=== PATIENT | female | born 1945 | race Caucasian/White ===

== ENCOUNTER → 2017-01-17 | Outpatient (CLI) | payer BC ==
[2017-01-17 14:51] LABS: HEMATOCRIT 30.8 % (36.0-47.0); HEMOGLOBIN 10.3 g/dL (12.0-15.5); HGB HCT DIFFERENCE 0.1; MEAN CORPUSCULAR HEMOGLOBIN 31.2 pg (27.0-33.4); MEAN CORPUSCULAR HGB CONC 33.5 g/dL (32.0-36.0); MEAN CORPUSCULAR VOLUME 93 fl (80-97); RED CELL DISTRIBUTION WIDTH 15.2 % (11.5-14.0); WHITE BLOOD COUNT 8.1 10^3/uL (4.0-10.5)
[2017-01-17 15:00] LABS: APPEARANCE,URINE CLEAR; BILIRUBIN,URINE NEGATIVE (NEGATIVE); GLUCOSE, URINE NEGATIVE (NEGATIVE); KETONES,URINE NEGATIVE (NEGATIVE); LEUKOCYTE ESTERASE,URINE NEGATIVE (NEGATIVE); NITRITE,URINE NEGATIVE (NEGATIVE); PROTEIN,URINE 100 mg/dL (NEGATIVE); URINE SPECIFIC GRAVITY 1.008; UROBILINOGEN,URINE NEGATIVE mg/dL (<2.0)
[2017-01-17 15:12] LABS: ANION GAP 14 (5-19); BLOOD UREA NITROGEN 46 mg/dL (7-20); CALCIUM 9.4 mg/dL (8.4-10.2); CARBON DIOXIDE 18 mmol/L (22-30); CHLORIDE 112 mmol/L (98-107); CREATININE RESULT 3.18 mg/dL (0.52-1.25); GLUCOSE 106 mg/dL (75-110); PHOSPHORUS 6.8 mg/dL (2.5-4.5); SODIUM 143.8 mmol/L (137-145)
[2017-01-17 15:15] LABS: POTASSIUM 4.9 mmol/L (3.6-5.0)
== END ==
LOC: OD 13:43
PROVIDERS: ATTEND Internal Medicine Nephrology
DX: N18.4 Chronic kidney disease, stage 4 (severe) (principal); E87.5 Hyperkalemia; D64.9 Anemia, unspecified; I12.9 Hypertensive chronic kidney disease with stage 1 through stage 4 chronic kidney disease, or unspecified chronic kidney disease
CPT/HCPCS: 36415; 80048; 81001; 83970; 84100; 85027

== ENCOUNTER → 2017-02-14 | Outpatient (CLI) | payer BC ==
[2017-02-14 14:26] LABS: HEMATOCRIT 29.7 % (36.0-47.0); HEMOGLOBIN 9.7 g/dL (12.0-15.5); HGB HCT DIFFERENCE -0.6; MEAN CORPUSCULAR HEMOGLOBIN 30.7 pg (27.0-33.4); MEAN CORPUSCULAR HGB CONC 32.6 g/dL (32.0-36.0); MEAN CORPUSCULAR VOLUME 94 fl (80-97); RED BLOOD COUNT 3.16 10^6/uL (3.72-5.28); WHITE BLOOD COUNT 8.8 10^3/uL (4.0-10.5)
[2017-02-14 14:37] LABS: APPEARANCE,URINE CLEAR; BILIRUBIN,URINE NEGATIVE (NEGATIVE); GLUCOSE, URINE NEGATIVE (NEGATIVE); KETONES,URINE NEGATIVE (NEGATIVE); LEUKOCYTE ESTERASE,URINE NEGATIVE (NEGATIVE); NITRITE,URINE NEGATIVE (NEGATIVE); PROTEIN,URINE 100 mg/dL (NEGATIVE); URINE SPECIFIC GRAVITY 1.008; UROBILINOGEN,URINE NEGATIVE mg/dL (<2.0)
[2017-02-14 14:50] LABS: URINE PROTEIN 148.2 mg/dL (<12)
[2017-02-14 14:58] LABS: ANION GAP 13 (5-19); BLOOD UREA NITROGEN 38 mg/dL (7-20); CALCIUM 9.6 mg/dL (8.4-10.2); CARBON DIOXIDE 19 mmol/L (22-30); CHLORIDE 108 mmol/L (98-107); CREATININE RESULT 3.24 mg/dL (0.52-1.25); GLUCOSE 101 mg/dL (75-110); POTASSIUM 5.1 mmol/L (3.6-5.0); SODIUM 139.9 mmol/L (137-145)
== END ==
LOC: OD 13:36
PROVIDERS: ATTEND Physician Assistant Medical
DX: I12.9 Hypertensive chronic kidney disease with stage 1 through stage 4 chronic kidney disease, or unspecified chronic kidney disease (principal); N18.5 Chronic kidney disease, stage 5; E87.2 Acidosis
CPT/HCPCS: 36415; 80048; 81001; 82570; 83970; 84100; 84156; 85027

== ENCOUNTER → 2017-03-13 | Outpatient (CLI) | payer BC ==
[2017-03-13 11:42] LABS: HEMOGLOBIN 10.1 g/dL (12.0-15.5); HGB HCT DIFFERENCE -0.7; MEAN CORPUSCULAR HEMOGLOBIN 31.5 pg (27.0-33.4); MEAN CORPUSCULAR HGB CONC 32.6 g/dL (32.0-36.0); MEAN CORPUSCULAR VOLUME 96 fl (80-97); RED BLOOD COUNT 3.22 10^6/uL (3.72-5.28); RED CELL DISTRIBUTION WIDTH 14.3 % (11.5-14.0); WHITE BLOOD COUNT 8.2 10^3/uL (4.0-10.5)
[2017-03-13 12:10] LABS: ANION GAP 14 (5-19); BLOOD UREA NITROGEN 50 mg/dL (7-20); CALCIUM 9.3 mg/dL (8.4-10.2); CARBON DIOXIDE 18 mmol/L (22-30); CHLORIDE 109 mmol/L (98-107); CREATININE RESULT 3.64 mg/dL (0.52-1.25); GLUCOSE 131 mg/dL (75-110); MAGNESIUM 1.8 mg/dL (1.6-2.3); POTASSIUM 4.8 mmol/L (3.6-5.0); SODIUM 140.8 mmol/L (137-145)
[2017-03-16 12:05] LABS: APPEARANCE,URINE CLEAR; BILIRUBIN,URINE NEGATIVE (NEGATIVE); GLUCOSE, URINE NEGATIVE (NEGATIVE); KETONES,URINE NEGATIVE (NEGATIVE); LEUKOCYTE ESTERASE,URINE NEGATIVE (NEGATIVE); NITRITE,URINE NEGATIVE (NEGATIVE); PROTEIN,URINE >=500 mg/dL (NEGATIVE); URINE SPECIFIC GRAVITY 1.008; UROBILINOGEN,URINE NEGATIVE mg/dL (<2.0)
[2017-03-16 12:33] LABS: URINE CREATININE 54.4 mg/dL (15-278)
== END ==
LOC: OD 11:01
PROVIDERS: ATTEND Physician Assistant Medical
DX: I12.9 Hypertensive chronic kidney disease with stage 1 through stage 4 chronic kidney disease, or unspecified chronic kidney disease (principal); N18.5 Chronic kidney disease, stage 5; D64.9 Anemia, unspecified; R80.9 Proteinuria, unspecified; N25.0 Renal osteodystrophy
CPT/HCPCS: 36415; 80048; 81001; 82570; 82728; 83540; 83550; 83735; 84156; 85027; 86038

== ENCOUNTER → 2017-04-12 | Outpatient (CLI) | payer BC ==
[2017-04-12 09:28] LABS: ANION GAP 11 (5-19); BLOOD UREA NITROGEN 36 mg/dL (7-20); CALCIUM 9.5 mg/dL (8.4-10.2); CARBON DIOXIDE 19 mmol/L (22-30); CHLORIDE 114 mmol/L (98-107); CREATININE RESULT 3.46 mg/dL (0.52-1.25); Direct HDL 32 mg/dL (>40); GLUCOSE 98 mg/dL (75-110); POTASSIUM 5.1 mmol/L (3.6-5.0); SODIUM 143.6 mmol/L (137-145); TRIGLYCERIDES 152 mg/dL (<150)
[2017-04-12 09:40] LABS: DIRECT LDL 33 mg/dL (<100)
[2017-04-12 09:43] LABS: VLDL CHOLESTEROL 30.4 mg/dL (10-31)
== END ==
LOC: OD 08:08
PROVIDERS: ATTEND Family Medicine
DX: E78.2 Mixed hyperlipidemia (principal); I10 Essential (primary) hypertension; Z79.899 Other long term (current) drug therapy
CPT/HCPCS: 36415; 80048; 80061; 83036; 84443

== ENCOUNTER → 2017-04-25 | Outpatient (CLI) | payer BC ==
[2017-04-25 12:27] LABS: APPEARANCE,URINE CLEAR; BILIRUBIN,URINE NEGATIVE (NEGATIVE); GLUCOSE, URINE NEGATIVE (NEGATIVE); KETONES,URINE NEGATIVE (NEGATIVE); LEUKOCYTE ESTERASE,URINE NEGATIVE (NEGATIVE); NITRITE,URINE NEGATIVE (NEGATIVE); PROTEIN,URINE 100 mg/dL (NEGATIVE); URINE SPECIFIC GRAVITY 1.006; UROBILINOGEN,URINE NEGATIVE mg/dL (<2.0)
[2017-04-25 12:48] LABS: URINE CREATININE 29.6 mg/dL (15-278); URINE PROTEIN 137.4 mg/dL (<12)
[2017-04-25 13:17] LABS: ABSOLUTE BASOPHILS # (AUTO) 0.1 10^3/uL (0.0-0.2); ABSOLUTE EOSINOPHILS # (AUTO) 0.2 10^3/uL (0.0-0.6); ABSOLUTE LYMPHOCYTES (AUTO) 1.9 10^3/uL (0.5-4.7); ABSOLUTE MONOCYTES (AUTO) 0.7 10^3/uL (0.1-1.4); ABSOLUTE NEUT (AUTO) 5.7 10^3/uL (1.7-8.2); EOSINOPHILS % (AUTO) 2.7 % (0-6); HEMATOCRIT 28.8 % (36.0-47.0); HEMOGLOBIN 9.6 g/dL (12.0-15.5); LYMPHOCYTES % (AUTO) 22.3 % (13-45); MEAN CORPUSCULAR HEMOGLOBIN 32.3 pg (27.0-33.4); MEAN CORPUSCULAR HGB CONC 33.5 g/dL (32.0-36.0); MEAN CORPUSCULAR VOLUME 96 fl (80-97); MONOCYTES % (AUTO) 7.8 % (3-13); RED BLOOD COUNT 2.98 10^6/uL (3.72-5.28); RED CELL DISTRIBUTION WIDTH 14.3 % (11.5-14.0); SEGMENTED NEUTROPHILS % (AUTO) 66.2 % (42-78); WHITE BLOOD COUNT 8.5 10^3/uL (4.0-10.5)
[2017-04-25 13:46] LABS: ANION GAP 14 (5-19); BLOOD UREA NITROGEN 39 mg/dL (7-20); CALCIUM 9.3 mg/dL (8.4-10.2); CARBON DIOXIDE 19 mmol/L (22-30); CHLORIDE 111 mmol/L (98-107); CREATININE RESULT 3.54 mg/dL (0.52-1.25); GLUCOSE 96 mg/dL (75-110); PHOSPHORUS 5.4 mg/dL (2.5-4.5); POTASSIUM 4.8 mmol/L (3.6-5.0); SODIUM 144.1 mmol/L (137-145)
== END ==
LOC: OD 11:48
PROVIDERS: ATTEND Physician Assistant Medical
DX: I12.0 Hypertensive chronic kidney disease with stage 5 chronic kidney disease or end stage renal disease (principal); N18.5 Chronic kidney disease, stage 5; E87.5 Hyperkalemia; R80.9 Proteinuria, unspecified
CPT/HCPCS: 36415; 80048; 81001; 82570; 83970; 84100; 84156; 85025

== ENCOUNTER → 2017-08-01 | Outpatient (CLI) | payer BC ==
[2017-08-01 14:44] LABS: HEMATOCRIT 30.7 % (36.0-47.0); HEMOGLOBIN 10.3 g/dL (12.0-15.5); HGB HCT DIFFERENCE 0.2; MEAN CORPUSCULAR HGB CONC 33.6 g/dL (32.0-36.0); MEAN CORPUSCULAR VOLUME 92 fl (80-97); RED BLOOD COUNT 3.33 10^6/uL (3.72-5.28); RED CELL DISTRIBUTION WIDTH 14.8 % (11.5-14.0); WHITE BLOOD COUNT 9.1 10^3/uL (4.0-10.5)
[2017-08-01 14:50] LABS: APPEARANCE,URINE SLIGHTLY-CLOUDY; BILIRUBIN,URINE NEGATIVE (NEGATIVE); GLUCOSE, URINE 50 mg/dL (NEGATIVE); KETONES,URINE NEGATIVE (NEGATIVE); LEUKOCYTE ESTERASE,URINE NEGATIVE (NEGATIVE); NITRITE,URINE NEGATIVE (NEGATIVE); PROTEIN,URINE >=500 mg/dL (NEGATIVE); UROBILINOGEN,URINE NEGATIVE mg/dL (<2.0)
[2017-08-01 15:08] LABS: ANION GAP 13 (5-19); BLOOD UREA NITROGEN 38 mg/dL (7-20); CALCIUM 9.4 mg/dL (8.4-10.2); CARBON DIOXIDE 22 mmol/L (22-30); CHLORIDE 111 mmol/L (98-107); CREATININE RESULT 4.49 mg/dL (0.52-1.25); GLUCOSE 99 mg/dL (75-110); POTASSIUM 4.7 mmol/L (3.6-5.0); SODIUM 145.7 mmol/L (137-145)
[2017-08-01 15:13] LABS: URINE CREATININE 81.6 mg/dL (15-278)
[2017-08-01 15:26] LABS: URINE PROTEIN 370.3 mg/dL (<12)
== END ==
LOC: OD 14:07
PROVIDERS: ATTEND Physician Assistant Medical
DX: N18.5 Chronic kidney disease, stage 5 (principal); D63.1 Anemia in chronic kidney disease; R80.9 Proteinuria, unspecified; E87.5 Hyperkalemia
CPT/HCPCS: 36415; 80048; 81001; 82570; 82728; 83540; 83550; 84156; 85027

== ENCOUNTER → 2017-09-14 | Outpatient (CLI) | payer BC ==
[2017-09-14 12:45] LABS: HEMOGLOBIN 10.2 g/dL (12.0-15.5); MEAN CORPUSCULAR HGB CONC 33.1 g/dL (32.0-36.0); MEAN CORPUSCULAR VOLUME 94 fl (80-97); PLATELET COUNT 159 10^3/uL (150-450); RED BLOOD COUNT 3.31 10^6/uL (3.72-5.28); RED CELL DISTRIBUTION WIDTH 15.3 % (11.5-14.0); WHITE BLOOD COUNT 9.9 10^3/uL (4.0-10.5)
[2017-09-14 12:49] LABS: APPEARANCE,URINE CLEAR; BILIRUBIN,URINE NEGATIVE (NEGATIVE); COLOR,URINE STRAW; GLUCOSE, URINE 50 mg/dL (NEGATIVE); KETONES,URINE NEGATIVE (NEGATIVE); LEUKOCYTE ESTERASE,URINE NEGATIVE (NEGATIVE); NITRITE,URINE NEGATIVE (NEGATIVE); PROTEIN,URINE 100 mg/dL (NEGATIVE); URINE SPECIFIC GRAVITY 1.008; UROBILINOGEN,URINE NEGATIVE mg/dL (<2.0)
[2017-09-14 13:10] LABS: UR PRO/CREAT RATIO RESULT 3.1 mg/mg (0.0-0.2); URINE CREATININE 36.7 mg/dL (15-278); URINE PROTEIN 113.8 mg/dL (<12)
[2017-09-14 13:11] LABS: ANION GAP 12 (5-19); BLOOD UREA NITROGEN 46 mg/dL (7-20); CALCIUM 9.8 mg/dL (8.4-10.2); CARBON DIOXIDE 21 mmol/L (22-30); CHLORIDE 111 mmol/L (98-107); GLUCOSE 97 mg/dL (75-110); POTASSIUM 5.4 mmol/L (3.6-5.0); SODIUM 143.9 mmol/L (137-145)
== END ==
LOC: OD 12:00
PROVIDERS: ATTEND Physician Assistant Medical
DX: I12.9 Hypertensive chronic kidney disease with stage 1 through stage 4 chronic kidney disease, or unspecified chronic kidney disease (principal); N18.5 Chronic kidney disease, stage 5; D64.9 Anemia, unspecified; E87.5 Hyperkalemia
CPT/HCPCS: 36415; 80048; 81001; 82570; 84156; 85027

== ENCOUNTER → 2017-12-07 | Outpatient (CLI) | payer BC ==
[2017-12-07 15:21] LABS: HEMATOCRIT 28.8 % (36.0-47.0); HEMOGLOBIN 9.8 g/dL (12.0-15.5); MEAN CORPUSCULAR HGB CONC 33.9 g/dL (32.0-36.0); MEAN CORPUSCULAR VOLUME 94 fl (80-97); PLATELET COUNT 137 10^3/uL (150-450); RED BLOOD COUNT 3.06 10^6/uL (3.72-5.28); RED CELL DISTRIBUTION WIDTH 14.4 % (11.5-14.0); WHITE BLOOD COUNT 9.5 10^3/uL (4.0-10.5)
[2017-12-07 15:31] LABS: ANION GAP 11 (5-19); BLOOD UREA NITROGEN 48 mg/dL (7-20); CALCIUM 9.1 mg/dL (8.4-10.2); CARBON DIOXIDE 20 mmol/L (22-30); CHLORIDE 112 mmol/L (98-107); GLUCOSE 105 mg/dL (75-110); PHOSPHORUS 5.9 mg/dL (2.5-4.5); POTASSIUM 4.6 mmol/L (3.6-5.0)
[2017-12-07 15:42] LABS: UR PRO/CREAT RATIO RESULT 4.6 mg/mg (0.0-0.2); URINE CREATININE 23.2 mg/dL (15-278); URINE PROTEIN 106.1 mg/dL (<12)
== END ==
LOC: OD 14:45
PROVIDERS: ATTEND Physician Assistant Medical
DX: I12.0 Hypertensive chronic kidney disease with stage 5 chronic kidney disease or end stage renal disease (principal); N18.5 Chronic kidney disease, stage 5; R80.9 Proteinuria, unspecified; E87.5 Hyperkalemia
CPT/HCPCS: 36415; 80048; 82570; 83735; 83970; 84100; 84156; 85027

== ENCOUNTER → 2017-12-14 | Outpatient (CLI) | payer BC | LOC: OD 13:50 | PROVIDERS: ATTEND Physician Assistant Medical | DX: E83.42 Hypomagnesemia (principal) | CPT/HCPCS: 36415; 83735 ==

== ENCOUNTER → 2018-01-18 | Outpatient (CLI) | payer BC ==
[2018-01-18 15:20] LABS: HEMATOCRIT 26.9 % (36.0-47.0); MEAN CORPUSCULAR HEMOGLOBIN 30.9 pg (27.0-33.4); MEAN CORPUSCULAR HGB CONC 33.5 g/dL (32.0-36.0); MEAN CORPUSCULAR VOLUME 92 fl (80-97); PLATELET COUNT 212 10^3/uL (150-450); RED BLOOD COUNT 2.92 10^6/uL (3.72-5.28); RED CELL DISTRIBUTION WIDTH 14.2 % (11.5-14.0); WHITE BLOOD COUNT 7.8 10^3/uL (4.0-10.5)
[2018-01-18 15:26] LABS: APPEARANCE,URINE CLEAR; BILIRUBIN,URINE NEGATIVE (NEGATIVE); COLOR,URINE STRAW; GLUCOSE, URINE 50 mg/dL (NEGATIVE); KETONES,URINE NEGATIVE (NEGATIVE); LEUKOCYTE ESTERASE,URINE NEGATIVE (NEGATIVE); NITRITE,URINE NEGATIVE (NEGATIVE); PROTEIN,URINE 100 mg/dL (NEGATIVE); URINE SPECIFIC GRAVITY 1.006; UROBILINOGEN,URINE NEGATIVE mg/dL (<2.0)
[2018-01-18 15:33] LABS: ANION GAP 16 (5-19); BLOOD UREA NITROGEN 43 mg/dL (7-20); CALCIUM 9.5 mg/dL (8.4-10.2); CARBON DIOXIDE 22 mmol/L (22-30); CHLORIDE 105 mmol/L (98-107); GLUCOSE 105 mg/dL (75-110); IRON(TIBC) 31.6 ug/dL (37-170); PHOSPHORUS 6.8 mg/dL (2.5-4.5); POTASSIUM 5.1 mmol/L (3.6-5.0); SODIUM 143.2 mmol/L (137-145)
== END ==
LOC: OD 14:35
PROVIDERS: ATTEND Physician Assistant Medical
DX: I12.0 Hypertensive chronic kidney disease with stage 5 chronic kidney disease or end stage renal disease (principal); N18.5 Chronic kidney disease, stage 5; E83.42 Hypomagnesemia; D64.9 Anemia, unspecified
CPT/HCPCS: 36415; 80048; 81001; 82728; 83540; 83550; 83735; 83970; 84100; 85027

== ENCOUNTER → 2018-03-22 | Outpatient (CLI) | payer BC ==
[2018-03-22 13:57] LABS: APPEARANCE,URINE CLEAR; BILIRUBIN,URINE NEGATIVE (NEGATIVE); COLOR,URINE STRAW; GLUCOSE, URINE 50 mg/dL (NEGATIVE); KETONES,URINE NEGATIVE (NEGATIVE); LEUKOCYTE ESTERASE,URINE NEGATIVE (NEGATIVE); NITRITE,URINE NEGATIVE (NEGATIVE); PROTEIN,URINE 100 mg/dL (NEGATIVE); URINE SPECIFIC GRAVITY 1.008; UROBILINOGEN,URINE NEGATIVE mg/dL (<2.0)
[2018-03-22 14:07] LABS: HEMATOCRIT 29.9 % (36.0-47.0); HEMOGLOBIN 10.2 g/dL (12.0-15.5); MEAN CORPUSCULAR HEMOGLOBIN 31.1 pg (27.0-33.4); MEAN CORPUSCULAR VOLUME 92 fl (80-97); PLATELET COUNT 157 10^3/uL (150-450); RED BLOOD COUNT 3.26 10^6/uL (3.72-5.28); RED CELL DISTRIBUTION WIDTH 15.5 % (11.5-14.0); WHITE BLOOD COUNT 8.8 10^3/uL (4.0-10.5)
[2018-03-22 14:08] LABS: UR PRO/CREAT RATIO RESULT 4.7 mg/mg (0.0-0.2); URINE CREATININE 27.4 mg/dL (15-278); URINE PROTEIN 127.5 mg/dL (<12)
[2018-03-22 14:33] LABS: ANION GAP 16 (5-19); BLOOD UREA NITROGEN 70 mg/dL (7-20); CALCIUM 9.6 mg/dL (8.4-10.2); CARBON DIOXIDE 23 mmol/L (22-30); CHLORIDE 108 mmol/L (98-107); GLUCOSE 110 mg/dL (75-110); PHOSPHORUS 6.8 mg/dL (2.5-4.5); POTASSIUM 4.9 mmol/L (3.6-5.0); SODIUM 146.6 mmol/L (137-145)
== END ==
LOC: OD 13:24
PROVIDERS: ATTEND Physician Assistant Medical
DX: I12.0 Hypertensive chronic kidney disease with stage 5 chronic kidney disease or end stage renal disease (principal); N18.5 Chronic kidney disease, stage 5; D64.9 Anemia, unspecified; E87.5 Hyperkalemia
CPT/HCPCS: 36415; 80048; 81001; 82570; 83970; 84100; 84156; 85027

== ENCOUNTER → 2018-04-20 | Outpatient (CLI) | payer BC ==
[2018-04-20 11:49] LABS: HEMATOCRIT 31.5 % (36.0-47.0); HEMOGLOBIN 10.5 g/dL (12.0-15.5); MEAN CORPUSCULAR HEMOGLOBIN 30.7 pg (27.0-33.4); MEAN CORPUSCULAR HGB CONC 33.2 g/dL (32.0-36.0); MEAN CORPUSCULAR VOLUME 92 fl (80-97); PLATELET COUNT 145 10^3/uL (150-450); RED BLOOD COUNT 3.41 10^6/uL (3.72-5.28); RED CELL DISTRIBUTION WIDTH 15.6 % (11.5-14.0); WHITE BLOOD COUNT 8.8 10^3/uL (4.0-10.5)
[2018-04-20 12:13] LABS: ANION GAP 16 (5-19); BLOOD UREA NITROGEN 59 mg/dL (7-20); CALCIUM 10.7 mg/dL (8.4-10.2); CARBON DIOXIDE 22 mmol/L (22-30); CHLORIDE 104 mmol/L (98-107); GLUCOSE 104 mg/dL (75-110); POTASSIUM 5.3 mmol/L (3.6-5.0); SODIUM 141.9 mmol/L (137-145)
== END ==
LOC: OD 11:03
PROVIDERS: ATTEND Physician Assistant Medical
DX: I12.0 Hypertensive chronic kidney disease with stage 5 chronic kidney disease or end stage renal disease (principal); N18.5 Chronic kidney disease, stage 5; R80.9 Proteinuria, unspecified; D63.1 Anemia in chronic kidney disease
CPT/HCPCS: 36415; 80048; 85027

== ENCOUNTER → 2018-12-31 | Outpatient (CLI) | payer BC ==
[2018-12-31 11:06] LABS: TRIGLYCERIDES 68 mg/dL (<150)
[2018-12-31 11:18] LABS: DIRECT LDL 47 mg/dL (<100)
== END ==
LOC: OD 09:54
PROVIDERS: ATTEND Family Medicine
DX: E78.2 Mixed hyperlipidemia (principal); I10 Essential (primary) hypertension; Z79.899 Other long term (current) drug therapy
CPT/HCPCS: 36415; 80061; 83036; 84443

== ENCOUNTER → 2019-01-22 | Outpatient (CLI) | payer BC, MEDICARE ==
[2019-01-22 13:59] LABS: HEMATOCRIT 35.2 % (36.0-47.0); HEMOGLOBIN 11.9 g/dL (12.0-15.5); MEAN CORPUSCULAR HEMOGLOBIN 31.4 pg (27.0-33.4); MEAN CORPUSCULAR HGB CONC 33.9 g/dL (32.0-36.0); MEAN CORPUSCULAR VOLUME 93 fl (80-97); RED CELL DISTRIBUTION WIDTH 16.6 % (11.5-14.0); WHITE BLOOD COUNT 13.4 10^3/uL (4.0-10.5)
[2019-01-22 14:19] LABS: ANION GAP 18 (5-19); BLOOD UREA NITROGEN 68 mg/dL (7-20); CALCIUM 7.6 mg/dL (8.4-10.2); CARBON DIOXIDE 22 mmol/L (22-30); CHLORIDE 91 mmol/L (98-107); GLUCOSE 139 mg/dL (75-110); POTASSIUM 4.6 mmol/L (3.6-5.0); SODIUM 131.4 mmol/L (137-145)
[2019-01-22 14:23] LABS: PLATELET COUNT 98 10^3/uL (150-450)
== END ==
LOC: OD 13:16
PROVIDERS: ATTEND Internal Medicine Nephrology
DX: R53.1 Weakness (principal)
CPT/HCPCS: 36415; 80048; 83735; 85027